=== PATIENT | female | born 1990 | race Caucasian/White ===

== ENCOUNTER 2021-01-03 17:31 | Observation (INO) | END 2021-01-03 18:33 | disposition home or self-care (01) | LOC: 1NENULAB | PROVIDERS: ADMIT Advanced Practice Midwife; ATTEND Advanced Practice Midwife ==

== ENCOUNTER 2021-04-01 04:06 | Inpatient (IN) ==
[~2021-04-01 04:06] MED LIST: Azithromycin 500 MG in 0.9 % Sodium Chloride 250 ML IVPB PRN; CeFAZolin Syr 3,000MG/30 ML 3,000 MG/30 ML SYRINGE IVPB ONE; Famotidine 20 MG/2 ML VIAL IVP ONE; Metoclopramide 10 MG/2 ML VIAL IVP ONE; Oxytocin 20 units/ LR 1000 mL 20 UNIT/1,000 ML BAG IVC ONE
[2021-04-01] MEDS ORDERED: Ringers Solution, Lactated 1,000 ML ONE ×3 (04:11→18:37)
[2021-04-01] MEDS ORDERED: Ringers Solution, Lactated 1,000 ML IVC SCH (04:15)
[2021-04-01] MEDS ORDERED: Oxytocin 20 units/ LR 1000 mL 20 UNIT/1,000 ML BAG IVC SCH ×2 (04:15→12:34)
[2021-04-01 04:39] LABS: Basophils % 0.2 %; Eosinophils # 0.1 K/mcL (0.0-0.6); Eosinophils % 0.8 %; Hematocrit 33.4 % (35.3-44.9); Hemoglobin 10.9 g/dL (11.5-15.4); Immature Granulocytes % 0.8 % (0-4); Lymphocytes # 2.5 K/mcL (0.6-4.6); Lymphocytes % 23.8 %; Mean Corpuscular HGB Conc 32.6 g/dL (31.6-35.5); Mean Corpuscular Hemoglobin 27.5 pg (28.0-33.3); Mean Corpuscular Volume 84.3 fL (83.0-100.0); Mean Platelet Volume 12.5 fL (9.4-12.4); Monocytes # 0.7 K/mcL (0.0-1.3); Monocytes % 6.9 %; Neutrophils # 7.2 K/mcL (1.6-8.9); Platelet Count 180 K/mcL (140-400); Red Blood Count 3.96 M/mcL (3.82-4.97); Red Cell Distribution Width 12.7 % (11.5-14.5); Segmented Neutrophils % 67.5 %; White Blood Count 10.7 K/mcL (4.3-11.1)
[2021-04-01 04:43] LABS: Amphetamine Screen,Urine Negative ng/mL (Cutoff=1000); Barbiturate Screen,Urine Negative ng/mL (Cutoff=200); Benzodiazepines Screen,Urine Negative ng/mL (Cutoff=200); Cannabinoid Screen,Urine Negative ng/mL (Cutoff = 50); Cocaine Screen,Urine Negative ng/mL (Cutoff= 300); Creatinine,Urine 137 mg/dL; Opiate Screen,Urine Negative ng/mL (Cutoff=300); Phencyclidine Screen,Urine Negative ng/mL (Cutoff=25); Protein/Creatinine Ratio,Urine 0.11 mg/mg (0.00-0.20)
[2021-04-01 05:18] LABS: Influenza A PCR Negative (Negative); Influenza B PCR Negative (Negative); Resp. Syncytial Virus PCR Negative (Negative); SARS-CoV-2 by PCR (In House) Negative (Negative)
[2021-04-01] MEDS ORDERED: *HR* Morphine Sulfate/PF 10 MG/10 ML AMPUL ONE (06:08)
[2021-04-01] MEDS ORDERED: *HR* FentaNYL (PF) 100 MCG/2 ML VIAL ONE (06:08)
[2021-04-01] MEDS ORDERED: EPHEDrine 50 MG/ML VIAL ONE ×2 (06:08→06:36)
[2021-04-01] MEDS ORDERED: Ondansetron 4 MG/2 ML VIAL ONE (06:10)
[2021-04-01] MEDS ORDERED: Ketorolac 30 MG/ML VIAL ONE (06:12)
[2021-04-01 06:13] LABS: Alanine Aminotransferase 7 Units/L (7-52); Aspartate Amino Transferase 5 Units/L (13-39); BUN/Creatinine Ratio 13 (6-26); Blood Urea Nitrogen 7 mg/dL (6-20); Lactate Dehydrogenase 132 Units/L (140-271); Uric Acid 3.6 mg/dL (2.3-7.6); eGFR For African Americans > 60 (> 60); eGFR For Non-African Americans > 60 (> 60)
[2021-04-01] MEDS ORDERED: *HR* Phenylephrine 10 MG/ML VIAL ONE (07:10)
[2021-04-01] MEDS ORDERED: *HR* HYDROMORPHONE 2 MG/ML VIAL ONE ×2 (09:31→20:23)
[2021-04-01] MEDS ORDERED: Metoclopramide 10 MG/2 ML VIAL IVP PRN (12:34)
[2021-04-01] MEDS ORDERED: Ondansetron 4 MG/2 ML VIAL IVP PRN (12:34)
[2021-04-01] MEDS ORDERED: *HR* HYDROcodone/Acet 5/325 mg TABLET PO PRN (12:34)
[2021-04-01] MEDS ORDERED: Ketorolac 30 MG/ML VIAL IVP ONE (13:00)
[2021-04-01] MEDS: Simethicone 80 MG TAB.CHEW PO SCH (13:16)
[2021-04-01] MEDS: Prenatal Vit/FA 1 EACH TABLET PO SCH (13:16)
[2021-04-01] MEDS ORDERED: *HR* HYDROmorphone (PF) 1 MG/ML SYRINGE IVP ONE ×2 (17:16→17:41)
[2021-04-01 17:57] LABS: Basophils % 0.1 %; Hematocrit 28.7 % (35.3-44.9); Immature Granulocytes % 0.9 % (0-4); Lymphocytes # 1.2 K/mcL (0.6-4.6); Lymphocytes % 8.6 %; Mean Corpuscular HGB Conc 32.4 g/dL (31.6-35.5); Mean Corpuscular Hemoglobin 26.9 pg (28.0-33.3); Mean Corpuscular Volume 82.9 fL (83.0-100.0); Mean Platelet Volume 12.3 fL (9.4-12.4); Monocytes # 0.5 K/mcL (0.0-1.3); Monocytes % 3.2 %; Neutrophils # 12.6 K/mcL (1.6-8.9); Platelet Count 174 K/mcL (140-400); Red Blood Count 3.46 M/mcL (3.82-4.97); Red Cell Distribution Width 12.5 % (11.5-14.5); Segmented Neutrophils % 87.2 %; White Blood Count 14.4 K/mcL (4.3-11.1)
[2021-04-01 17:59] LABS: Hemoglobin 9.3 g/dL (11.5-15.4)
[2021-04-01] MEDS ORDERED: miSOPROStoL 100 MCG TABLET PO ONE (18:00)
[2021-04-01 18:09] LABS: Prothrombin Time 11.5 Seconds (9.4-12.1)
[2021-04-01] MEDS: Methylergonovine 0.2 MG/ML AMPUL IM ONE ×2 (18:10→21:10)
[2021-04-01] MEDS ORDERED: *HR* Rocuronium Bromide 50 MG/5 ML VIAL ONE (18:16)
[2021-04-01] MEDS ORDERED: *HR* Midazolam HCl 2 MG/2 ML VIAL ONE (18:29)
[2021-04-01] MEDS ORDERED: 0.9 % Sodium Chloride 500 ML ONE ×2 (18:48→18:59)
[2021-04-01] MEDS: Acetaminophen 325 MG TABLET PO SCH (19:27)
[2021-04-01] MEDS ORDERED: Lidocaine -MPF 2% 5 ML VIAL ONE (19:33)
[2021-04-01] MEDS ORDERED: Acetaminophen IV 1,000 MG/100 ML BAG IVPB ONE (20:23)
[2021-04-01] MEDS ORDERED: Methylergonovine 0.2 MG/ML AMPUL IM ONE (21:06)
[2021-04-02] MEDS: Piperacillin/Tazobactam 3.375 GM in 0.9 % Sodium Chloride Mini Bag 100 ML IVPB SCH ×3 (00:12→18:54)
[2021-04-02] MEDS: Acetaminophen 325 MG TABLET PO SCH ×3 (00:17→18:01)
[2021-04-02] MEDS: *HR* Enoxaparin 80 MG/0.8 ML SYRINGE SQ SCH ×2 (00:17→07:34)
[2021-04-02] MEDS: *HR* OxyCODONE Immed Rel 5 MG TABLET PO PRN ×5 (00:20→20:15)
[2021-04-02] MEDS: Ibuprofen 600 MG TABLET PO SCH ×3 (03:00→20:16)
[2021-04-02 05:13] LABS: Basophils % 0.2 %; Eosinophils % 0.1 %; Hematocrit 24.1 % (35.3-44.9); Hemoglobin 7.9 g/dL (11.5-15.4); Immature Granulocytes % 0.8 % (0-4); Lymphocytes # 2.2 K/mcL (0.6-4.6); Lymphocytes % 18.3 %; Mean Corpuscular HGB Conc 32.8 g/dL (31.6-35.5); Mean Corpuscular Hemoglobin 27.6 pg (28.0-33.3); Mean Corpuscular Volume 84.3 fL (83.0-100.0); Mean Platelet Volume 12.2 fL (9.4-12.4); Monocytes # 0.8 K/mcL (0.0-1.3); Monocytes % 6.9 %; Platelet Count 146 K/mcL (140-400); Red Blood Count 2.86 M/mcL (3.82-4.97); Red Cell Distribution Width 12.5 % (11.5-14.5); Segmented Neutrophils % 73.7 %; White Blood Count 12.2 K/mcL (4.3-11.1)
[2021-04-02] MEDS: Prenatal Vit/FA 1 EACH TABLET PO SCH (09:50)
[2021-04-02] MEDS: Simethicone 80 MG TAB.CHEW PO SCH ×3 (11:33→20:16)
[2021-04-02] MEDS ORDERED: Ringers Solution, Lactated 500 ML ONE (14:09)
[2021-04-03 05:37] LABS: Basophils % 0.2 %; Eosinophils # 0.2 K/mcL (0.0-0.6); Eosinophils % 2.5 %; Hematocrit 26.1 % (35.3-44.9); Hemoglobin 8.4 g/dL (11.5-15.4); Immature Granulocytes % 1.1 % (0-4); Lymphocytes # 3.1 K/mcL (0.6-4.6); Lymphocytes % 33.8 %; Mean Corpuscular HGB Conc 32.2 g/dL (31.6-35.5); Mean Corpuscular Hemoglobin 28.6 pg (28.0-33.3); Mean Corpuscular Volume 88.8 fL (83.0-100.0); Mean Platelet Volume 12.8 fL (9.4-12.4); Monocytes # 0.8 K/mcL (0.0-1.3); Monocytes % 8.2 %; Nucleated Red Blood Cells 0.2 /100 WBC (0); Platelet Count 133 K/mcL (140-400); Red Blood Count 2.94 M/mcL (3.82-4.97); Red Cell Distribution Width 13.2 % (11.5-14.5); Segmented Neutrophils % 54.2 %; White Blood Count 9.2 K/mcL (4.3-11.1)
[2021-04-03] MEDS: Piperacillin/Tazobactam 3.375 GM in 0.9 % Sodium Chloride Mini Bag 100 ML IVPB SCH ×4 (08:20→16:54)
[2021-04-03] MEDS: Prenatal Vit/FA 1 EACH TABLET PO SCH (08:37)
[2021-04-03] MEDS: Ibuprofen 600 MG TABLET PO SCH ×3 (08:37→23:06)
[2021-04-03] MEDS: Simethicone 80 MG TAB.CHEW PO SCH ×3 (08:37→20:39)
[2021-04-03] MEDS: *HR* OxyCODONE Immed Rel 5 MG TABLET PO PRN ×3 (08:38→20:55)
[2021-04-03] MEDS: *HR* Enoxaparin 80 MG/0.8 ML SYRINGE SQ SCH ×2 (10:50→20:35)
[2021-04-03] MEDS: Acetaminophen 325 MG TABLET PO SCH ×2 (16:56→23:07)
[2021-04-03 20:12] VITALS: O2SAT 98
[2021-04-03] MEDS: cephALEXin 500 MG CAPSULE PO SCH (20:38)
[2021-04-03] MEDS: metroNIDAZOLE 500 MG TABLET PO SCH (20:38)
[2021-04-04] MEDS: *HR* OxyCODONE Immed Rel 5 MG TABLET PO PRN (04:42)
[2021-04-04] MEDS: Ibuprofen 600 MG TABLET PO SCH (05:50)
[2021-04-04] MEDS: Acetaminophen 325 MG TABLET PO SCH (05:51)
[2021-04-04] MEDS: cephALEXin 500 MG CAPSULE PO SCH (08:09)
[2021-04-04] MEDS: Prenatal Vit/FA 1 EACH TABLET PO SCH (08:09)
[2021-04-04] MEDS: *HR* Enoxaparin 80 MG/0.8 ML SYRINGE SQ SCH (08:10)
[2021-04-04] MEDS: metroNIDAZOLE 500 MG TABLET PO SCH (08:10)
[2021-04-04] MEDS: Simethicone 80 MG TAB.CHEW PO SCH (08:12)
[2021-04-04 08:13] VITALS: BP 116/63; PULSE 50; TEMP 98.1
== END 2021-04-04 14:09 | disposition home or self-care (01) | DRG 540 ==
LOC: 1NENULAB → 1NENUOBS 12:33
PROVIDERS: ADMIT Obstetrics & Gynecology; ATTEND Obstetrics & Gynecology